=== PATIENT | female | born 1980 | race Asian ===

== ENCOUNTER 2023-10-26 13:45 | Emergency (ER) | payer MEDICAID ==
[~2023-10-26] VITALS: Ht 157.5 cm; Wt 49.9 kg
[2023-10-26] MEDS ORDERED: ONDA4TAB11 PO (14:12)
[2023-10-26] MEDS ORDERED: IBUP-1955 PO (14:12)
[2023-10-26] MEDS ORDERED: ONDANSETRON 4 MG TAB.RAPDIS ONE (14:17)
[2023-10-26] MEDS ORDERED: IBUPROFEN 400 MG TABLET ONE (14:17)
[2023-10-26] MEDS: IBUPROFEN 400 MG TABLET PO ONE (14:25)
[2023-10-26] MEDS: ONDANSETRON 4 MG TAB.RAPDIS SL ONE (14:26)
[2023-10-26 14:37] VITALS: BP 138/76; TEMP 98.2; O2SAT 98
== END 2023-10-26 14:37 | disposition home or self-care (01) ==
LOC: ER 13:49
DX: S13.4XXA Sprain of ligaments of cervical spine, initial encounter (principal); R51.9 Headache, unspecified; R11.0 Nausea; V43.62XA Car passenger injured in collision with other type car in traffic accident, initial encounter; Y93.89 Activity, other specified; Y92.488 Other paved roadways as the place of occurrence of the external cause; Y99.8 Other external cause status
CPT/HCPCS: 99283; Q0162